=== PATIENT | female | born 1935 | race Caucasian/White ===

== ENCOUNTER 2018-10-05 08:17 | Emergency (ER) | payer MEDICARE ==
[2018-10-05] MEDS ORDERED: SODIUM CHLORIDE 0.9% 500 ML 500 ML IV STA (08:20)
[2018-10-05 08:31] VITALS: TEMP 97.4
--- NOTE | 2018-10-05 08:37 | ED ---
General Adult HPI - General Chief complaint: Neuro Symptoms/Deficit Stated complaint: poss stroke Time Seen by Provider: 10/05/18 08:19 Source: EMS, RN notes reviewed, old records reviewed Mode of arrival: EMS Limitations: altered mental status - History of Present Illness Initial comments: 83-year-old female, history obtained from EMS. Patient with previous history of atrial fibrillation, and previous CVA with minimal right-sided deficit presenting from home. EMS was called because the patient had left her dog outside in her front door open, neighbors checked on her found her lying in the bathroom. Patient was minimally responsive, right-sided upper or lower extremity weakness noted. Patient would follow simple commands. EMS does not report any external signs of trauma. Last known well was 10 PM yesterday which was 22 hours prior to arrival. According to EMS patient had spoke with her daughter over the phone at that time with no complaints. - Related Data Home Medications Medication Instructions Recorded Confirmed Atorvastatin Calcium [Lipitor] 10 mg PO HS 06/29/14 10/05/18 Allopurinol [Zyloprim] 300 mg PO DAILY 10/05/18 10/05/18 Aspirin EC [Ecotrin Low Dose] 81 mg PO DAILY 10/05/18 10/05/18 Furosemide [Lasix] 20 mg PO DAILY 10/05/18 10/05/18 Gabapentin [Neurontin] 300 mg PO BID 10/05/18 10/05/18 Levothyroxine Sodium [Synthroid] 112 mcg PO HS 10/05/18 10/05/18 Losartan [Cozaar] 25 mg PO HS 10/05/18 10/05/18 Metoprolol Tartrate [Lopressor] 12.5 mg PO BID 10/05/18 10/05/18 Rivaroxaban [Xarelto] 15 mg PO DAILY 10/05/18 10/05/18 metFORMIN HCL [Glucophage] 1,000 mg PO BID 10/05/18 10/05/18 sitaGLIPtin [Januvia] 100 mg PO HS 10/05/18 10/05/18 Allergies Allergy/AdvReac Type Severity Reaction Status Date / Time No Known Allergies Allergy Verified 10/05/18 08:35 Review of Systems ROS Statement: Those systems with pertinent positive or pertinent negative responses have been documented in the HPI. ROS Other: All systems not noted in ROS Statement are negative. Past Medical History Past Medical History: Atrial Fibrillation, Diabetes Mellitus, Hyperlipidemia, Hypertension History of Any Multi-Drug Resistant Organisms: None Reported Past Surgical History: Cholecystectomy, Hysterectomy, Tonsillectomy Past Psychological History: No Psychological Hx Reported Smoking Status: Former smoker Past Alcohol Use History: None Reported Past Drug Use History: None Reported General Exam Limitations: altered mental status General appearance: lethargic, obtunded Head exam: Present: atraumatic, normocephalic Eye exam: Present: normal appearance. Absent: PERRL (Pupils 2 mm bilaterally, sluggish) Neck exam: Present: normal inspection, other (No step-off). Absent: tenderness , meningismus Respiratory exam: Present: normal lung sounds bilaterally. Absent: respiratory distress, wheezes Cardiovascular Exam: Present: regular rate, irregular rhythm GI/Abdominal exam: Present: soft. Absent: distended, tenderness, guarding Extremities exam: Present: normal inspection, normal capillary refill, other. Absent: pedal edema Neurological exam: Present: motor sensory deficit (Right hemiparesis, NIH is very high, 24). Absent: alert, oriented X3 Skin exam: Present: warm, dry, intact. Absent: cyanosis, diaphoretic Course Vital Signs 10/05/18 10/05/18 10/05/18 08:25 08:27 08:30 Temperature Pulse Rate 98 92 90 Respiratory 18 20 18 Rate Blood Pressure 137/96 137/96 146/87 O2 Sat by Pulse 98 100 98 Oximetry 10/05/18 10/05/18 10/05/18 08:31 08:45 09:00 Temperature 97.4 F L Pulse Rate 100 94 Respiratory 18 18 Rate Blood Pressure 123/97 148/86 O2 Sat by Pulse 97 97 Oximetry 10/05/18 10/05/18 10/05/18 09:15 09:30 09:45 Temperature Pulse Rate 94 98 102 H Respiratory 18 18 18 Rate Blood Pressure 148/84 160/105 142/126 O2 Sat by Pulse 98 97 97 Oximetry 10/05/18 10/05/18 10:00 10:15 Temperature Pulse Rate 90 94 Respiratory 20 18 Rate Blood Pressure 170/107 167/105 O2 Sat by Pulse 98 98 Oximetry - Reevaluation(s) Reevaluation #1: 10/05/18 09:15 Delay in imaging secondary to lack of adequate IV access. Reevaluation #2: 10/05/18 09:[address] Quintero, will be transferred to [facility] for intervention. Recommend maintaining systolic blood pressure above 160, will initiate norepinephrine at this time. Family agreeable with plan. EKG Findings - EKG Comments: EKG Findings:: EKG: Atrial fibrillation, no ST segment changes, rate of 100, QRS duration 72, QTC 482 Medical Decision Making - Medical Decision Making 83-year-old female with concern for CVA. Head CT negative for intracranial hemorrhage. Patient has high NIH of 24. She is protecting her airway. She is minimally responsive. Stable vital signs. CT angiography is obtained and is reviewed by the neurologists following this patient Dr. Quintero, discussion with family regarding possible intervention, and plan to proceed with intervention at this time. Patient will be transferred to [facility]. CT without contrast, negative for intracranial hemorrhage. 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 Patient has CBC showed mild leukocytosis 11.9, stable hemoglobin, creatinine 1.06. Normal blood sugar. - Lab Data Result diagrams: 10/05/18 08:33 10/05/18 08:33 Lab Results 10/05/18 10/05/18 10/05/18 Range/Units 08:33 08:33 08:33 WBC 11.9 H (3.8-10.6) k/uL RBC 4.64 (3.80-5.40) m/uL Hgb 15.4 (11.4-16.0) gm/dL Hct 47.7 H (34.0-46.0) % MCV 102.7 H (80.0-100.0) fL MCH 33.1 (25.0-35.0) pg MCHC 32.2 (31.0-37.0) g/dL RDW 14.1 (11.5-15.5) % Plt Count 227 (150-450) k/uL Neutrophils % 87 % Lymphocytes % 7 % Monocytes % 4 % Eosinophils % 0 % Basophils % 0 % Neutrophils # 10.4 H (1.3-7.7) k/uL Lymphocytes # 0.9 L (1.0-4.8) k/uL Monocytes # 0.5 (0-1.0) k/uL Eosinophils # 0.1 (0-0.7) k/uL Basophils # 0.0 (0-0.2) k/uL Macrocytosis Slight PT (9.0-12.0) sec INR (<1.2) APTT (22.0-30.0) sec Sodium 138 (137-145) mmol/L Potassium 4.5 (3.5-5.1) mmol/L Chloride 100 (98-107) mmol/L Carbon Dioxide 28 (22-30) mmol/L Anion Gap 10 mmol/L BUN 22 H (7-17) mg/dL Creatinine 1.06 H (0.52-1.04) mg/dL Est GFR (CKD-EPI)AfAm 56 (>60 ml/min/1.73 sqM) Est GFR (CKD-EPI)NonAf 49 (>60 ml/min/1.73 sqM) Glucose 275 H (74-99) mg/dL Calcium 9.7 (8.4-10.2) mg/dL Total Bilirubin 1.3 (0.2-1.3) mg/dL AST 29 (14-36) U/L ALT 27 (9-52) U/L Alkaline Phosphatase 118 (38-126) U/L Total Creatine Kinase 71 (30-135) U/L CK-MB (CK-2) 1.2 (0.0-2.4) ng/mL CK-MB (CK-2) Rel Index 1.7 Troponin I <0.012 (0.000-0.034) ng/mL Total Protein 7.1 (6.3-8.2) g/dL Albumin 4.3 (3.5-5.0) g/dL 10/05/18 Range/Units 08:33 WBC (3.8-10.6) k/uL RBC (3.80-5.40) m/uL Hgb (11.4-16.0) gm/dL Hct (34.0-46.0) % MCV (80.0-100.0) fL MCH (25.0-35.0) pg MCHC (31.0-37.0) g/dL RDW (11.5-15.5) % Plt Count (150-450) k/uL Neutrophils % % Lymphocytes % % Monocytes % % Eosinophils % % Basophils % % Neutrophils # (1.3-7.7) k/uL Lymphocytes # (1.0-4.8) k/uL Monocytes # (0-1.0) k/uL Eosinophils # (0-0.7) k/uL Basophils # (0-0.2) k/uL Macrocytosis PT 13.9 H (9.0-12.0) sec INR 1.4 H (<1.2) APTT 30.1 H (22.0-30.0) sec Sodium (137-145) mmol/L Potassium (3.5-5.1) mmol/L Chloride (98-107) mmol/L Carbon Dioxide (22-30) mmol/L Anion Gap mmol/L BUN (7-17) mg/dL Creatinine (0.52-1.04) mg/dL Est GFR (CKD-EPI)AfAm (>60 ml/min/1.73 sqM) Est GFR (CKD-EPI)NonAf (>60 ml/min/1.73 sqM) Glucose (74-99) mg/dL Calcium (8.4-10.2) mg/dL Total Bilirubin (0.2-1.3) mg/dL AST (14-36) U/L ALT (9-52) U/L Alkaline Phosphatase (38-126) U/L Total Creatine Kinase (30-135) U/L CK-MB (CK-2) (0.0-2.4) ng/mL CK-MB (CK-2) Rel Index Troponin I (0.000-0.034) ng/mL Total Protein (6.3-8.2) g/dL Albumin (3.5-5.0) g/dL Critical Care Time Critical Care Time: Yes Total Critical Care Time: 35 Disposition Clinical Impression: Cerebrovascular accident Disposition: OTHER INSTITUTION NOT DEFINED Condition: Serious Is patient prescribed a controlled substance at d/c from ED?: No Referrals: Matias Elizabeth MD [Primary Care Provider] - 1-2 days Time of Disposition: 09:45 - Out of Hospital Transfer - Req. Specs Out of Hospital Transfer - Requested Specifics: Intensive Care Unit ( Transferred to [facility])
[2018-10-05 08:50] LABS: Basophils % (A) 0 %; Eosinophils # (A) 0.1 k/uL (0-0.7); Eosinophils % (A) 0 %; HCT 47.7 % (34.0-46.0); HGB 15.4 gm/dL (11.4-16.0); Lymphocytes # (A) 0.9 k/uL (1.0-4.8); Lymphocytes % (A) 7 %; MCH 33.1 pg (25.0-35.0); MCHC 32.2 g/dL (31.0-37.0); MCV 102.7 fL (80.0-100.0); Macrocytosis Slight; Mean Platelet Volume 6.9; Monocytes # (A) 0.5 k/uL (0-1.0); Monocytes % (A) 4 %; Neutrophils # (A) 10.4 k/uL (1.3-7.7); Neutrophils % (A) 87 %; Platelet Count 227 k/uL (150-450); RBC 4.64 m/uL (3.80-5.40); RDW 14.1 % (11.5-15.5); WBC 11.9 k/uL (3.8-10.6)
[2018-10-05 08:56] LABS: Albumin 4.3 g/dL (3.5-5.0); Calcium 9.7 mg/dL (8.4-10.2); INR 1.4 (<1.2); Prothrombin Time 13.9 sec (9.0-12.0); Total Bilirubin 1.3 mg/dL (0.2-1.3); Total Protein 7.1 g/dL (6.3-8.2)
[2018-10-05 08:57] LABS: Partial Thromboplastin Time 30.1 sec (22.0-30.0)
--- NOTE | 2018-10-05 08:58 | CT ---
EXAMINATION TYPE: CT brain wo con DATE OF EXAM: 10/05/2018 COMPARISON: 06/29/2014 INDICATION: Neuro deficit DLP: 1058.4 mGycm, Automated exposure control for dose reduction was used. CONTRAST: None CT of the brain is performed utilizing 3 mm thick sections through the posterior fossa and 3 mm thick sections through the remaining calvarium. Study is performed within 24 hours of arrival to the hosp ital. No abnormal hyperdensity is present to suggest an acute intracranial hemorrhage. No mass lesion is evident. No acute infarcts are evident. Ventricles and sulci are mildly prominent for the patient age. Paranasal sinuses and mastoid air cells within the [id number] are clear. IMPRESSIONS: 1. Age-related atrophy. 2. No acute intracranial process.
[2018-10-05 09:00] LABS: Potassium 4.5 mmol/L (3.5-5.1)
[2018-10-05 09:06] LABS: Creatine Kinase 71 U/L (30-135)
[2018-10-05 09:20] LABS: Creatine Kinase MB 1.2 ng/mL (0.0-2.4); Troponin I <0.012 ng/mL (0.000-0.034)
--- NOTE | 2018-10-05 09:43 | XR ---
EXAMINATION TYPE: XR chest 1V portable DATE OF EXAM: 10/05/2018 COMPARISON: None INDICATION: Altered mental status TECHNIQUE: Single frontal view of the chest is obtained. FINDINGS: The heart size is normal. The pulmonary vasculature is normal. Mild infiltrate is at the right base. Correlate for subsegmental atelectasis. Early pneumonia could b e considered. Follow-up can be performed as clinically indicated IMPRESSION: 1. Mild right lower lobe infiltrate. Correlate for atelectasis or early pneumonia.
[2018-10-05] MEDS ORDERED: NOREPINEPHRINE 4 MG in SODIUM CHLORIDE 0.9% 250 ML IV ONE (09:55)
[2018-10-05] MEDS ORDERED: SODIUM CHLORIDE 0.9% 1,000 ML IV SCH (10:00)
--- NOTE | 2018-10-05 10:01 | CT ---
EXAMINATION TYPE: CT angio head neck DATE OF EXAM: 10/05/2018 HISTORY: Neuro deficit COMPARISON: None CT DLP: 479 mGycm. Automated Exposure Control for Dose Reduction was Utilized. TECHNIQUE: CTA scan of the neck is performed with IV Contrast, patient injected with 65 mL of Isovue 370, axial images are obtained, coronal and sagittal reformatted images are reviewed. Three-D recons tructed images are created on an independent workstation and reviewed. FINDINGS: Carotid/Vascular Structures: Right carotid artery follows a somewhat medial course. Atheromatous plaq uing is at the right carotid bifurcation. The proximal to mid left internal carotid artery is obstruc dylon. No flow is evident within the mid to distal internal carotid artery. Contrast is within the fora men Lacerum. The distal left internal carotid artery at the carotid siphon has no contrast. Small am ount of retrograde flow may be the left ophthalmic artery. Findings can be compatible with a complete obstruction within the proximal left internal carotid artery. Consider angiography to evaluate for m inimal contrast flow. There is narrowing and atheromatous plaquing proximal right internal carotid ar jenelle. This measures 64%. Correlate for any right-sided symptoms. [place]: The distal left internal carotid artery is not evident. A1 and M1 segments are norm al. A2 segments are unremarkable. Anterior communicating artery is patent. Middle cerebral artery bra nches appear to have contrast. There is diminished flow in the left middle cerebral artery branches f rom crossover flow. The left vertebral artery is dominant. Basilar artery is unremarkable. Posterior cerebral vasculature appears normal. Right posterior communicating artery. Posterior indicating arter y is identified Other: There is a three-vessel arch. Left vertebral artery is dominant. IMPRESSION: 1. 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 Small amoun t of flow into the proximal internal carotid artery on the left is present and a critical stenosis wi th minimal flow is not excluded. Consider angiography for confirmation. 2. Moderate stenosis estimated at 64% at the right internal carotid artery origin. 3. [place] appears within normal limits with crossover flow through an anterior communicatin g artery.
[2018-10-05 10:36] VITALS: BP 167/105; PULSE 94; RESP 18
[2018-10-05 11:05] LABS: Glucose,Whole Blood 225 mg/dL (75-99)
== END 2018-10-05 10:29 | disposition other institution (70) ==
LOC: EC 08:17
DX: I63.9 Cerebral infarction, unspecified (principal); R29.724 NIHSS score 24; D72.829 Elevated white blood cell count, unspecified; I48.91 Unspecified atrial fibrillation; E11.9 Type 2 diabetes mellitus without complications; E78.5 Hyperlipidemia, unspecified; I10 Essential (primary) hypertension; Z86.73 Personal history of transient ischemic attack (TIA), and cerebral infarction without residual deficits; Z79.82 Long term (current) use of aspirin; Z79.890 Hormone replacement therapy; Z79.01 Long term (current) use of anticoagulants; Z79.84 Long term (current) use of oral hypoglycemic drugs; Z79.899 Other long term (current) drug therapy; Z87.891 Personal history of nicotine dependence
CPT/HCPCS: 36415; 93005; 80053; 82550; 82553; 84484; 85025; 85610; 85730; 71045; 70496; 70450; 70498; 99291; Q9967